=== PATIENT | female | born 1970 | race Caucasian/White ===

== ENCOUNTER 2016-12-04 13:17 | Emergency (ER) ==
[2016-12-04] MEDS ORDERED: ZOFRAN ODT PO ONE (14:44)
[2016-12-04] MEDS ORDERED: DILAUDID IM ONE (14:44)
[2016-12-04] MEDS ORDERED: NORFLEX IM ONE (14:44)
--- NOTE | 2016-12-04 14:53 | PROVIDER DOCUMENTATION ---
HPI-Musculoskeletal Pain/Inj - GENERAL Chief Complaint: Neck Pain Stated Complaint: NECK PAIN Time Seen by Provider: 12/04/16 14:29 Source: patient, family - HX OF PRESENT ILLNESS-MUSKULOSKELTAL Nature of Presenting Problem: 46 year old obese WF presents with c/o a 30 minute period of RUE paralysis, onset upon awakening with right neck pain. pt reports the paralysis resolved after 30 minutes without intervention and the neck pain has persisted. pt has a history of same in March 2016, she was evaluated and not given a diagnosis. pt denies new trauma, she does report a cervical spine fracture in 2012 with head trauma. she has chronic migraine CHARLES's from the trauma and some chronic neck pain , however this is different than her chronic pain. Quality of Pain: reports: dull Severity in ED: mild Onset/Duration: this morning Timing: gone now Modifying Factors: improves with: nothing. worse with: analgesics, cold/heat therapy, exercise, immobilization, lying down, massage, movement, other medication, palpation, rest, other Any recent injury?: No Locality of Occurance: Home Similar Symptoms Previously?: No Recently seen or treated by another doctor?: No Review of Systems - Adult - REVIEW OF SYSTEMS - ADULT Constitutional: reports: no symptoms reported. denies: chills, fever, fatique Eyes: reports: no symptoms reported. denies: discharge, blurred vision, double vision, redness Ears, Nose, Mouth & Throat: reports: no symptoms reported. denies: ear discharge, ear pain, nose pain, loose teeth, throat pain, throat swelling Cardiovascular: reports: no symptoms reported. denies: chest pain, palpitations , syncope Respiratory: reports: no symptoms reported. denies: chronic cough, cough, shortness of breath, wheezing Gastrointestinal: reports: no symptoms reported. denies: abdominal pain, diarrhea, nausea, vomiting Genitourinary: reports: no symptoms reported. denies: dysuria, hematuria, urgency Musculoskeletal: reports: see HPI, neck pain. denies: bone pain, back pain, frequent leg cramps, joint pain, joint swelling, muscle aches, muscle weakness Integumentary: reports: no symptoms reported. denies: hives, itching, skin sores/ulcer Neurological: reports: no symptoms reported. denies: ataxia, paresthesia, tremors Psychiatric: reports: no symptoms reported. denies: anxiety, anti-depressant use Endocrine: reports: no symptoms reported Hematologic/Lymphatic: reports: no symptoms reported Allergic/Immunologic: reports: no symptoms reported All Other Systems: Reviewed and Negative Past History - Adult - PAST MEDICAL HISTORY-ADULT Review of Records: reports: Old Records Reviewed, Nursing Assessment Review, Medications Reviewed, Social history reviewed & non-contributory. Major Childhood Illnesses: reports: denies history Cardiovascular: reports: denies history Respiratory: reports: asthma, bronchitis Gastrointestinal: reports: denies history Obstetrical/Gynecological: reports: denies history Genitourinary: reports: denies history Musculoskeletal: reports: chronic pain, neck/back injury, spinal fracture Neurological: reports: denies history Psychiatric: reports: denies history Endocrine/Immune: reports: denies history Other Conditions: reports: denies history - PRIOR SURGERIES/PROCEDURES Surgical/Procedure History: reports: reviewed, not pertinent - PRIOR HOSPITALIZATIONS Prior Hospitalizations: reports: for similar symptoms - IMMUNIZATION STATUS Childhood Immunizations: See Nurse Assessment Flu Vaccine: See Nurse Assessment - FAMILY HISTORY Family History: reviewed, not pertinent - SOCIAL HISTORY Smoking: denies, non-smoker Substance Use: none/never Alcohol Use Frequency: never Physical Exam-Injury Related - Physical Exam-Injury Related Initial Vital Signs Reviewed: Yes General Appearance: appears well, alert, mild distress. negative: no apparent distress, moderate distress, lethargic, slow to respond, obtunded, combative Eyes: pink conjunctivae. negative: conjuctival exudate, pale conjunctivae, sclera injected, scleral icterus, subconjunctival hemorrhage Head, Ears, Nose, Mouth & Throat: normocephalic/atraumatic, moist mucous membranes, normal ENT inspection, TMs normal, pharynx normal Neck: supple, normal inspection, decresed ROM, limited range of motion, pain on movement. negative: non-tender (right lateral neck pain), full range of motion , pain with axial compression, C-spine tenderness, ecchymosis, lymphadenopathy, muscle spasm, subcutaneous emphysema, swelling, trachial deviation, tender lateral, tender midline, thyromegaly, vertebral point tenderness Respiratory: chest non-tender, lungs clear, normal breath sounds, no pleuratic chest pain, no respiratory distress, no accessory muscle use. negative: respiratory distress, decreased breath sounds, accessory muscle use, crackles, rales, rhonchi, stridor, wheezing Cardiovascular: normal peripheral pulses, regular rate, rhythm, no edema, no gallop, no JVD, no murmur Chest/Breast: no tenderness Peripheral Pulses: radial (R): 3+, radial (L): 3+, dorsalis-pedis (R): 3+, dorsalis-pedis (L): 3+ Abdominal Exam: normal bowel sounds, non tender, soft Female Genitalia/Pelvic Exam: deferred Rectal Exam: deferred Hemoccult Exam: deferred Lymphatic: no adenopathy Back Exam: normal inspection, no CVA tenderness, no vertebral tenderness. negative: CVA tenderness, decreased range of motion, swelling, vertebral tenderness Extremity: normal range of motion, non-tender, normal gait, normal inspection, no pedal edema, no calf tenderness, normal capillary refill. negative: deformity, erythema, inflammation Integumentary: normal color, warm/dry Neurologic: carburetor specialist II-XII nml as tested, grossly normal, no motor/sensory deficits , negative romberg's sign. negative: abnormal cerebellar tests, abnormal carburetor specialist II -XII, abnormal gait, aphasia, EOM palsy, facial droop, focal weakness, motor weakness, sensory deficit, positive romberg's sign Psych/Mental Status: normal mood/affect, normal thought content, normal thought process, oriented x 3 - Glascow Coma Score Best Eye Response (Elder): (4) open spontaneously Best Verbal Response (Elder): (5) oriented Best Motor Response (Kress): (6) obeys commands Kress Total: 15 Progress - PLAN OF CARE/RESULTS Progress/Plan/Lab Results: Laboratory Tests 12/04/16 12/04/16 12/04/16 15:32 15:32 15:32 WBC 8.39 RBC 4.21 Hgb 13.6 Hct 39.9 MCV 94.8 MCH 32.3 H MCHC 34.1 RDW Std Deviation 12.3 Plt Count 301 MPV 10.8 H Immature Gran % (Auto) 0.2 Neut % (Auto) 62.2 Lymph % (Auto) 26.6 [place] % (Auto) 7.2 Eos % (Auto) 3.3 Baso % (Auto) 0.5 Immature Gran # (Auto) 0.02 Neut # (Auto) 5.22 Lymph # (Auto) 2.23 [place] # (Auto) 0.60 H Eos # (Auto) 0.28 Baso # (Auto) 0.04 PT INR PTT (Actin FS) Sodium 140 Potassium 3.9 Chloride 103 Carbon Dioxide 24 L Anion Gap 13 BUN 9 Creatinine 0.8 Estimated GFR/1.73 m2 > 60 BUN/Creatinine Ratio 11 Glucose 112 H Calculated Osmolality 279 Calcium 8.8 AST 27 ALT 37 H Alkaline Phosphatase 58 Creatine Kinase 90 Troponin T Total Protein 6.7 Albumin 4.0 Globulin 2.7 Albumin/Globulin Ratio 1.5 Urine Source Urine Color Urine Turbidity Urine pH Ur Specific [place] Urine Protein Ur Glucose (Stick) Ur Ketones (Stick) Urine Blood Urine Nitrite Urine Bilirubin Urobilinogen Dipstick Urine Leukocytes Urine WBC (Auto) Urine RBC (Auto) U Epithel Cells (Auto) Urine Bacteria (Auto) Urine Opiates Screen Ur Oxycodone Screen Ur Methadone, Qual Ur Barbiturates Screen Ur Phencyclidine Scrn Ur Amphetamines Screen U Benzodiazepines Scrn Urine Cocaine Screen U Cannabinoids Screen Plasma/Serum Ethyl Alc 12/04/16 12/04/16 12/04/16 15:32 15:32 15:32 WBC RBC Hgb Hct MCV MCH MCHC RDW Std Deviation Plt Count MPV Immature Gran % (Auto) Neut % (Auto) Lymph % (Auto) [place] % (Auto) Eos % (Auto) Baso % (Auto) Immature Gran # (Auto) Neut # (Auto) Lymph # (Auto) [place] # (Auto) Eos # (Auto) Baso # (Auto) PT 10.1 INR 0.95 PTT (Actin FS) 24.9 Sodium Potassium Chloride Carbon Dioxide Anion Gap BUN Creatinine Estimated GFR/1.73 m2 BUN/Creatinine Ratio Glucose Calculated Osmolality Calcium AST ALT Alkaline Phosphatase Creatine Kinase Troponin T < 0.010 Total Protein Albumin Globulin Albumin/Globulin Ratio Urine Source CLEAN CATCH Urine Color ORANGE Urine Turbidity TURBID Urine pH 8.0 Ur Specific [place] 1.020 Urine Protein TRACE A Ur Glucose (Stick) NEGATIVE Ur Ketones (Stick) NEGATIVE Urine Blood NEGATIVE Urine Nitrite NEGATIVE Urine Bilirubin NEGATIVE Urobilinogen Dipstick NORMAL Urine Leukocytes SMALL A Urine WBC (Auto) <10 Urine RBC (Auto) <10 U Epithel Cells (Auto) <10 Urine Bacteria (Auto) 3+ Urine Opiates Screen Ur Oxycodone Screen Ur Methadone, Qual Ur Barbiturates Screen Ur Phencyclidine Scrn Ur Amphetamines Screen U Benzodiazepines Scrn Urine Cocaine Screen U Cannabinoids Screen Plasma/Serum Ethyl Alc 12/04/16 15:32 WBC RBC Hgb Hct MCV MCH MCHC RDW Std Deviation Plt Count MPV Immature Gran % (Auto) Neut % (Auto) Lymph % (Auto) [place] % (Auto) Eos % (Auto) Baso % (Auto) Immature Gran # (Auto) Neut # (Auto) Lymph # (Auto) [place] # (Auto) Eos # (Auto) Baso # (Auto) PT INR PTT (Actin FS) Sodium Potassium Chloride Carbon Dioxide Anion Gap BUN Creatinine Estimated GFR/1.73 m2 BUN/Creatinine Ratio Glucose Calculated Osmolality Calcium AST ALT Alkaline Phosphatase Creatine Kinase Troponin T Total Protein Albumin Globulin Albumin/Globulin Ratio Urine Source Urine Color Urine Turbidity Urine pH Ur Specific [place] Urine Protein Ur Glucose (Stick) Ur Ketones (Stick) Urine Blood Urine Nitrite Urine Bilirubin Urobilinogen Dipstick Urine Leukocytes Urine WBC (Auto) Urine RBC (Auto) U Epithel Cells (Auto) Urine Bacteria (Auto) Urine Opiates Screen NONE DETECTED Ur Oxycodone Screen NONE DETECTED Ur Methadone, Qual NONE DETECTED Ur Barbiturates Screen NONE DETECTED Ur Phencyclidine Scrn NONE DETECTED Ur Amphetamines Screen NONE DETECTED U Benzodiazepines Scrn NONE DETECTED Urine Cocaine Screen NONE DETECTED U Cannabinoids Screen NONE DETECTED Plasma/Serum Ethyl Alc Orders Category Date Time Status HEAD/C-SPINE W/O CONTRAST [CT] Stat Exams 12/04/16 14:46 Completed ALCOHOL BLOOD Stat Lab 12/04/16 15:32 Completed CBC WITH ELECTRONIC DIFF [HEME] Stat Lab 12/04/16 15:32 Completed CK PROFILE [SP CHEM] Stat Lab 12/04/16 15:32 Results COMPREHENSIVE METABOLIC PANEL [CHEM] Stat Lab 12/04/16 15:32 Results PROTIME WITH INR [COAG] Stat Lab 12/04/16 15:32 Completed PTT [COAG] Stat Lab 12/04/16 15:32 Completed TROPONIN T Stat Lab 12/04/16 15:32 Completed URINALYSIS W/POSS RFLX CULT [URINALYSIS] Stat Lab 12/04/16 15:32 Completed URINE DRUG SCREEN Stat Lab 12/04/16 15:32 Completed Hydromorphone [Dilaudid] Med 12/04/16 14:44 Discontinued 1 mg IM NOW ONE Ondansetron Odt [Zofran Odt] Med 12/04/16 14:44 Discontinued 4 mg PO NOW ONE Orphenadrine [Norflex] Med 12/04/16 14:44 Discontinued 60 mg IM NOW ONE Pulse Oximetry Stat Oth 12/04/16 14:48 Active Vital Signs - 24 hr 12/04/16 13:19 Temperature 98.6 F Pulse Rate 88 Respiratory 18 Rate Blood Pressure 159/86 O2 Sat by Pulse 96 Oximetry - REASSESSMENT Reassessment #1 Time Reassessed: 17:11 Status: improving (pt reporst all neck pain is resolved, pt able to perform full ROM of neck.) - CT/MRI 1 CT Study: Cervical Spine, Head Impression: Normal (head: negative c-spine: negative per Dr. Verde) Departure - Departure Time of Disposition Order: 17:13 DIAGNOSIS: Neck pain, Right upper limb pain Disposition: HOME 01 Certified Medical Emergency: Emergent Condition: Stable Additional Instructions: Follow up with Dr. Quintanilla, call for an appointment. ED Follow Up Instructions: You have been treated by a care provider in the Emergency Department. These instructions are being provided to you so you can have an understanding of how to care for yourself upon discharge. Upon discharge from the Emergency Department, you are responsible for making arrangements for follow-up care by a physician of your choice. Take all prescribed medications as directed. Return to the Emergency Department immediately for any new or worsening symptoms. You may call the Physician Referral phone number at [phone] to obtain a list of Physicians who are taking new patients. Prescriptions: Cyclobenzaprine [Flexeril] 10 mg PO TID #20 tablet Hydrocodone/APAP 5 mg/325 mg [[place]-5] 1 each PO Q6H PRN PRN #5 tablet PRN Reason: neck pain Famotidine [Pepcid] 20 mg PO DAILY #20 tablet Ketorolac [Toradol] 10 mg PO Q6H PRN PRN #10 tablet PRN Reason: neck pain Referrals: None,PCP [Primary Care Provider] - Kimmie Quintanilla MD [STAFF PHYSICIAN] - Forms: Return to School/Parent Work Instructions: Cervical Sprain, [id number] Attestation - Physician/ JASON Attestation Patient care was provided by Advanced Practice Provider:: Yes Advanced Practice Provider:: Consuelo Lerner Advanced Practice Provider documentation review:: The Mid-level provider documentation, treatment plan and medical decision making was reviewed by the physician who agrees with all treatment and medical decision making by the MLP.
--- NOTE | 2016-12-04 15:46 | Diag Imaging Result Document ---
PROCEDURE NAME: HEAD/C-SPINE W/O CONTRAST - 12/04/[address]: COMPARISON: 01/22/2012 FINDINGS: The ventricles and sulci are normal in size and contour. There is no mass, hemorrhage, or evidence of acute ischemia. The bony calvaria is intact. The visualized paranasal sinuses and mastoid air cells are clear. IMPRESSION: Negative head CT. CT CERVICAL SPINE: COMPARISON: 03/26/2011. FINDINGS: Alignment is anatomic. Vertebral body heights and intervertebral disc spaces are preserved. Neural foramina are patent. Soft tissues are clear. IMPRESSION: Negative Exam.
[2016-12-04 15:49] LABS: MANUAL DIFF NEEDED? NO; URINE MICRO REVIEW NEEDED? NO; URINE SOURCE CLEAN CATCH
[2016-12-04 15:53] LABS: BASO% 0.5 % (0.0-0.8); BILIRUBIN URINE NEGATIVE (NEGATIVE); BLOOD URINE NEGATIVE (NEGATIVE); COLOR ORANGE; EOS# 0.28 X1000 (0.0-0.7); EOS% 3.3 % (0.0-10.0); GLUCOSE URINE NEGATIVE (NEGATIVE); HEMATOCRIT 39.9 % (37.0-47.0); HEMOGLOBIN 13.6 g/dL (12.0-16.0); IMM GRAN# 0.02 X1000 (0.0-0.04); IMM GRAN% 0.2 % (0.0-0.5); LEUKOCYTES URINE SMALL (NEGATIVE); LYMPH# 2.23 X1000 (1.2-3.4); LYMPH% 26.6 % (20.5-51.1); MCH 32.3 PG (27-31); MCHC 34.1 g/dL (33-37); MCV 94.8 FL (81-99); MONO% 7.2 % (1.7-9.3); MPV 10.8 FL (7.4-10.4); NEUT% 62.2 % (42.2-75.2); NITRITE URINE NEGATIVE (NEGATIVE); PLT 301 X1000 (130-400); PROTEIN URINE TRACE mg/dL (NEGATIVE); RBC 4.21 XMIL (4.2-5.4); TURBIDITY URINE TURBID (CLEAR); UR EPITHELIAL CELLS <10 /HPF (<10); URINE BACTERIA 3+ /HPF; URINE CULTURE NEEDED? YES; URINE RBC <10 /HPF (<10); URINE WBC <10 /HPF (<10); UROBILINOGEN URINE NORMAL (NORMAL)
[2016-12-04 16:02] LABS: INR 0.95; PROTIME 10.1 Seconds (9.2-11.7); PTT 24.9 Seconds (22.0-36.0)
[2016-12-04 16:18] LABS: AGAP 13; ALKALINE PHOSPHATASE 58 U/L (32-104); BUN 9 mg/dL (8-22); CALCIUM 8.8 mg/dL (8.8-10.2); CHLORIDE 103 mmol/L (98-107); CK PROFILE 90 U/L (24-173); COSMO 279; GOT 27 U/L (10-30); GPT 37 U/L (10-36); POTASSIUM 3.9 mmol/L (3.5-5.1); SODIUM 140 mmol/L (136-145); TCO2 24 mmol/L (25-35); TOTAL PROTEIN 6.7 g/dL (6.3-8.3)
[2016-12-04 16:31] LABS: UR AMPHETAMINES QUAL NONE DETECTED (NONE DETECT); UR BARBITUATES QUAL NONE DETECTED (NONE DETECT); UR BENZODIAZEPIN QUAL NONE DETECTED (NONE DETECT); UR CANNABINOIDS QUAL NONE DETECTED (NONE DETECT); UR COCAINE QUAL NONE DETECTED (NONE DETECT); UR METHADONE QUAL NONE DETECTED (NONE DETECT); UR OPIATES QUAL NONE DETECTED (NONE DETECT); UR OXYCODONE QUAL NONE DETECTED (NONE DETECT); UR PCP QUAL NONE DETECTED (NONE DETECT)
[2016-12-04 17:20] LABS: TOTAL BILIRUBIN 0.44 mg/dL (0.20-1.00)
[2016-12-04 17:42] VITALS: BP 143/89
== END 2016-12-04 17:51 | disposition home or self-care (01) ==
LOC: ED 13:17
DX: M54.2 Cervicalgia (principal); M79.601 Pain in right arm; G89.29 Other chronic pain; R51 Headache; J45.909 Unspecified asthma, uncomplicated; Z79.51 Long term (current) use of inhaled steroids
CPT/HCPCS: 70450; 72125; 80053; 81001; 82550; 84484; 85025; 85610; 85730; 87088; G0480; J1170; J2360; 80320; 80324; 80345; 80346; 80349; 80353; 80358; 80361; 80365; 83992